=== PATIENT | male | born 1995 | race African-American/Black ===

== ENCOUNTER 2022-01-13 10:17 | Outpatient (CLI) | payer SELFPAY | END 2022-01-13 10:18 | disposition EMS.NT | LOC: EMS 10:17 | DX: R07.89 Other chest pain (principal) ==

== ENCOUNTER 2022-09-19 09:20 | Emergency (ER) | payer MEDICAID ==
[2022-09-19 10:22] LABS: RAPID STREP SCREEN Negative (Negative)
[2022-09-19] MEDS ORDERED: ALBUTEROL 1 PUFF INH STA (11:33)
--- NOTE | 2022-09-19 11:36 | ED Physician Documentation ---
History of Present Illness - Stated complaint Stated Complaint: SORE THROAT/CONGESTION - Chief complaint Chief Complaint: Heent - Additonal information Additional information: 27-year-old male presents emergency department requesting evaluation for sore throat cough and congestion. Reports symptoms started on August 21. He has completed a 10-day course of an antibiotic prescribed by an outpatient provider but states symptoms are not better. He has chronic congestion and a productive cough. He now has a sore throat. Reports that when he was eating last night he felt pain in his throat when swallowing. No recent fevers. No nausea or vomiting. He has not attempted anything [id number] for symptoms other than the prescribed antibiotics. He is a daily tobacco user as well as cannabis user. Patient's affect in triage is angry. He had been upset at the emergency department wait time. Reported that staff was racist because other patients were brought back before him based on acuity. I called was called to come to the emergency department but he was de-escalated. These events occurred prior to my initial evaluation with the patient Review of Systems Constitutional: denies: Fever Ears: reports: Reviewed and negative Nose: reports: Rhinorrhea / runny nose, Congestion Throat: reports: Sore throat Cardiac: reports: Reviewed and negative Respiratory: reports: Cough, Wheezing. denies: Dyspnea GI: reports: Reviewed and negative : reports: Reviewed and negative PD PAST MEDICAL HISTORY - Present Medications Home Medications: Ambulatory Orders Medication Instructions Recorded Confirmed Albuterol Sulf [Ventolin Hfa 1 - 2 puffs INH Q4HR PRN #1 each 09/19/22 Inhaler] - Allergies Allergies/Adverse Reactions: Allergies Allergy/AdvReac Type Severity Reaction Status Date / Time No Known Drug Allergies Allergy Verified 09/19/22 09:29 PD ED PE NORMAL - General General: Alert and oriented X 3, No acute distress, Well developed/nourished - HEENT HEENT: Atraumatic, Ears normal, Moist mucous membranes, Pharynx benign (Mildly erythematous posterior oropharynx without tonsillar exudate. Patient does have chronic tonsillar hypertrophy and crowding. Uvula is midline. No soft palate asymmetry or swelling. No dysphonia. Normal swallow) - Neck Neck: Supple, no meningeal sign, No adenopathy - Cardiac Cardiac: RRR, No murmur - Respiratory Respiratory: No respiratory distress. No: Clear bilaterally (Diffuse faint scattered expiratory wheeze. No respiratory distress. Room air saturations 99%) - Abdomen Abdomen: Normal bowel sounds, Soft, Non tender, Non distended - Back Back: No CVA TTP - Derm Derm: Normal color, Warm and dry - Extremities Extremities: No deformity - Neuro Neuro: Alert and oriented X 3 Eye Opening: Spontaneous Motor: Obeys Commands Verbal: Oriented GCS Score: 15 Results - Vitals Vitals: Vital Signs - 24 hr 09/19/22 09/19/22 09/19/22 09:27 11:51 12:00 Temperature 36.8 C Heart Rate 85 85 Respiratory 16 16 16 Rate Blood Pressure 140/93 H O2 Saturation 98 09/19/22 12:28 Temperature 36.4 C L Heart Rate 78 Respiratory 16 Rate Blood Pressure 150/89 H O2 Saturation 98 Oxygen O2 Source Room air - Labs Labs: Laboratory Tests 09/19/22 10:04 Group A Strep Rapid Negative - Rads (name of study) CXR Relevant Findings:: Final report received (No acute cardiopulmonary abnormalities or focal airspace disease) PD Medical Decision Making - ED course Complexity details: reviewed results, re-evaluated patient, considered differential, d/w patient ED course: 27-year-old male reports to the emergency department for evaluation of cough nasal congestion and a sore throat. Symptoms began August 21. He has completed 10-day course of antibiotics but does not feel better. He has had no fevers, night sweats or weight loss. He does endorse cannabis use as well as smoking/vaping daily. Takes no prescribed medications. With the exception of the antibiotic that he is prescribed by walk-in clinic he has not taken any [id number] medications for symptoms. Initially affect was angry. We had a strange patient encounter as he felt that he was roomed behind other patients due to his race. I am however on pulmonary auscultation the patient was noted to have some faint diffuse expiratory wheeze. Room air saturations were 99%. I did ask respiratory therapy to come to the bedside and they gave him an albuterol treatment with a spacer which he felt improved the symptoms. On reevaluation the patient has no further wheeze. Given the duration of symptoms I did obtain a chest x-ray which showed no acute cardiopulmonary process. At the time of this disposition the patient's respiratory PCR is pending. I suspect a viral URI or seasonal allergies causing chronic postnasal drip contributing to his cough. I do not feel he would benefit from a new course of antibiotics given the lack of fever and unremarkable chest x-ray findings. I am making the recommendation for the patient to use Sudafed [id number] to help with congestion. I would also like him to do saline nasal rinses followed by Flonase. He may benefit from the use of an allergy medication. He is directed to follow-up the respiratory PCR results on the computer. Albuterol prescribed for cough. As I was leaving the clinical encounter the patient reported to me that he is concerned his symptoms could be prodromal to HIV as he recently had a sexual encounter about 6 weeks ago and he has heard by hand of mouth that the individual he had unprotected sex with might be HIV positive. As such I have ordered the HIV reference testing. I notified the patient that these results would not be available for at least a week. We would follow-up with him if the testing was positive he may also access the test results online. He is also encouraged to follow closely with a primary care provider. Departure - Departure Disposition: 01 Home, Self Care Clinical Impression: Chronic nasal congestion Cough Qualifiers: Cough type: subacute Qualified Code(s): R05.2 - Subacute cough Condition: Stable Record reviewed to determine appropriate education?: Yes Prescriptions: Albuterol Sulf [Ventolin Hfa Inhaler] 1 - 2 puffs INH Q4HR PRN #1 each PRN Reason: Shortness Of Air/Wheezing Comments: You came to the emergency department today because for about 4 weeks you have had some chronic congestion in your nose as well as a cough. You have completed a course of antibiotics but not gotten better. Rate today is normal. He does not show any findings of pneumonia. When we initially listen to your lungs you were wheezy. We did give you some albuterol which seems to improve the symptoms. Because of this I am sending a prescription for albuterol to the [facility] in [place]. Chronic nasal congestion can cause postnasal drip which can make you have a cough.. I do encourage you to use a Courtney pot or saline nasal rinses each day in the shower. Once out of the shower use Flonase nasal spray. This has a mild steroid in it which can help significantly with congestion. Also using an smzn-ufz-zhmbxyq antihistamine such as Claritin or Zyrtec can be helpful. Benadryl at night can also help. A few doses of Sudafed may also dry up your sinuses. As you discussed with this provider you were concerned about the possibility of HIV infection. We are sending screening labs to check for HIV. We will not have these results for at least a week. We will notify you if the results are positive however you can access any of these results online by going through the [facility] portal. I encourage you to schedule an appointment with a primary care provider as soon as possible to discuss your overall health concerns. I also encourage you to attempt to stop smoking, vaping and using daily cannabis as it is undoubtedly contributing to your chronic congestion.
--- NOTE | 2022-09-19 12:27 | XRAY Report ---
PROCEDURE: Chest 1 View X-Ray INDICATIONS: cough X 1 month TECHNIQUE: One view of the chest was acquired. COMPARISON: None. FINDINGS: Surgical changes and devices: None. Lungs and pleura: No pleural effusions or pneumothorax. Lungs are clear. Mediastinum: Mediastinal contours appear normal. Heart size is normal. Bones and chest wall: No suspicious bony lesions. Overlying soft tissues appear unremarkable. IMPRESSION: Chest without acute cardiopulmonary abnormalities or focal airspace disease. Reviewed by: Ino Roland MD on 09/19/2022 12:26 PM PDT Approved by: Ino Roland MD on 09/19/2022 12:26 PM PDT Station ID: [id number]
[2022-09-19 12:30] VITALS: BP 150/89
[2022-09-19 12:45] LABS: CORONAVIRUS 229E-RESP PCR NOT DETECTED; CORONAVIRUS HKU1-RESP PCR NOT DETECTED; CORONAVIRUS NL63-RESP PCR NOT DETECTED; CORONAVIRUS OC43-RESP PCR NOT DETECTED; HUMAN METAPNEUMOVIRUS NOT DETECTED; RHINOVIRUS/ENTEROVIRUS NOT DETECTED; SARS-CoV-2 -RESP PCR PANEL NOT DETECTED
[2022-09-19 12:46] LABS: B. PARAPERTUSSIS- RESP PCR PAN NOT DETECTED; B. PERTUSSIS- RESP PCR PANEL NOT DETECTED; C. PNEUMONIAE- RESP PCR PANEL NOT DETECTED; INFLUENZA A- RESP PCR PANEL NOT DETECTED; INFLUENZA B - RESP PCR PANEL NOT DETECTED; M. PNEUMONIAE- RESP PCR PANEL NOT DETECTED; PARAINFLUENZA VIRUS 1 NOT DETECTED; PARAINFLUENZA VIRUS 2 NOT DETECTED; PARAINFLUENZA VIRUS 3 NOT DETECTED; PARAINFLUENZA VIRUS 4 NOT DETECTED; RSV- RESP PCR PANEL NOT DETECTED
[2022-09-21 12:09] LABS: HIV 1 AB Reactive (Non Reactive); HIV 2 AB Non Reactive (Non Reactive); HIV AB INTERPRETATION HIV-1 Positive (.); HIV SCREEN 4TH GENERATION Preliminary Reactive (Non Reactive)
== END 2022-09-19 13:11 | disposition home or self-care (01) ==
LOC: ED 09:20
DX: R09.81 Nasal congestion (principal); R05.2 Subacute cough; R06.2 Wheezing; F17.200 Nicotine dependence, unspecified, uncomplicated; Z11.4 Encounter for screening for human immunodeficiency virus [HIV]; Z20.822 Contact with and (suspected) exposure to COVID-19
CPT/HCPCS: 87070; 87389; 87430; 87633; 94640; 94664; 99284

== ENCOUNTER 2023-08-16 11:02 | Emergency (ER) | payer MEDICAID ==
[2023-08-16 11:15] VITALS: BP 146/83; O2SAT 98
[2023-08-16 12:09] LABS: B. PARAPERTUSSIS- RESP PCR PAN NOT DETECTED; B. PERTUSSIS- RESP PCR PANEL NOT DETECTED; C. PNEUMONIAE- RESP PCR PANEL NOT DETECTED; CORONAVIRUS 229E-RESP PCR NOT DETECTED; CORONAVIRUS HKU1-RESP PCR NOT DETECTED; CORONAVIRUS NL63-RESP PCR NOT DETECTED; CORONAVIRUS OC43-RESP PCR NOT DETECTED; HUMAN METAPNEUMOVIRUS NOT DETECTED; INFLUENZA A- RESP PCR PANEL NOT DETECTED; INFLUENZA B - RESP PCR PANEL NOT DETECTED; M. PNEUMONIAE- RESP PCR PANEL NOT DETECTED; PARAINFLUENZA VIRUS 1 NOT DETECTED; PARAINFLUENZA VIRUS 2 NOT DETECTED; PARAINFLUENZA VIRUS 3 NOT DETECTED; PARAINFLUENZA VIRUS 4 NOT DETECTED; RHINOVIRUS/ENTEROVIRUS NOT DETECTED; RSV- RESP PCR PANEL NOT DETECTED; SARS-CoV-2 -RESP PCR PANEL NOT DETECTED
--- NOTE | 2023-08-16 12:55 | ED Physician Documentation ---
PD HPI URI - Stated complaint Stated Complaint: COUGH/DISORIENTED - Chief complaint Chief Complaint: Resp - History obtained from History obtained from: Patient - History of Present Illness Timing - onset: How many days ago (6-7) Timing duration: Days Timing details: Gradual onset, Still present (has had persistent cough and dysspnea, poor sleep due to it, without improving as yet.) Associated symptoms: Chills, Nasal congestion, Productive cough, Dyspnea. No: NVD, Bilateral edema Contributing factors: COPD / asthma. No: Sick contact, Immunocompromised Similar symptoms before: Has not had sx before Review of Systems Constitutional: reports: Chills, Myalgias. denies: Fever Nose: reports: Congestion. denies: Rhinorrhea / runny nose Throat: denies: Sore throat Cardiac: reports: Chest pain / pressure. denies: Palpitations Respiratory: reports: Dyspnea, Cough, Wheezing PD PAST MEDICAL HISTORY - Past Medical History Past Medical History: Yes Cardiovascular: None Respiratory: Asthma Other Past Medical History: HIV - Past Surgical History Past Surgical History: No - Present Medications Home Medications: Ambulatory Orders Medication Instructions Recorded Confirmed Albuterol Sulf [Ventolin Hfa 1 - 2 puffs INH Q4HR PRN #1 each 09/19/22 Inhaler] Albuterol Sulf [Ventolin Hfa 2 - 3 puffs INH QID #1 each 08/16/23 Inhaler] Amox/Clav 875/125 [Augmentin] 1 each PO Q12H #10 tablet 08/16/23 Benzonatate [Tessalon] 100 mg PO TID PRN #20 cap 08/16/23 dexAMETHasone [Decadron] 4 mg PO DAILY #5 tablet 08/16/23 - Allergies Allergies/Adverse Reactions: Allergies Allergy/AdvReac Type Severity Reaction Status Date / Time No Known Drug Allergies Allergy Verified 08/16/23 11:11 - Social History Does the pt smoke?: Yes Smoking Status: Current every day smoker Does the pt drink ETOH?: No Does the pt have substance abuse?: No - Immunizations Immunizations are current?: Yes - POLST Patient has POLST: No PD ED PE NORMAL - Vitals Vital signs reviewed: Yes - General General: Alert and oriented X 3, No acute distress, Well developed/nourished - HEENT HEENT: Ears normal, Pharynx benign - Neck Neck: Supple, no meningeal sign, No adenopathy - Cardiac Cardiac: RRR, No murmur - Respiratory Respiratory: Clear bilaterally - Abdomen Abdomen: Soft - Extremities Extremities: No edema, No calf tenderness / cord - Neuro Neuro: No motor deficit, No sensory deficit Results - Vitals Vitals: Oxygen O2 Source Room air - Labs Labs: Laboratory Tests 08/16/23 11:15 Nasal Adenovirus (PCR) NOT DETECTED Nasal B. parapertussis DNA (PCR) NOT DETECTED Nasal Coronavir 229E PCR NOT DETECTED Nasal Coronavir HKU1 PCR NOT DETECTED Nasal Coronavir NL63 PCR NOT DETECTED Nasal Coronavir OC43 PCR NOT DETECTED Nasal Enterovir/Rhinovir PCR NOT DETECTED Nasal Influenza B PCR NOT DETECTED Nasal Influenza A PCR NOT DETECTED Nasal Parainfluen 1 PCR NOT DETECTED Nasal Parainfluen 2 PCR NOT DETECTED Nasal Parainfluen 3 PCR NOT DETECTED Nasal Parainfluen 4 PCR NOT DETECTED Nasal RSV (PCR) NOT DETECTED Nasal B.pertussis DNA PCR NOT DETECTED Nasal C.pneumoniae (PCR) NOT DETECTED Rangel Human Metapneumo PCR NOT DETECTED Nasal M.pneumoniae (PCR) NOT DETECTED Nasal SARS-CoV-2 (PCR) NOT DETECTED PD Medical Decision Making - ED course Complexity details: considered differential (cough with sputum production and feeling weak and lightheaded this morning. ), d/w patient Departure - Departure Disposition: 01 Home, Self Care Clinical Impression: Dyspnea, Lower respiratory infection (e.g., bronchitis, pneumonia, pneumonitis, pulmonitis) Condition: Stable Record reviewed to determine appropriate education?: Yes Instructions: ED Upper Resp Infec Abx Tx Prescriptions: Amox/Clav 875/125 [Augmentin] 1 each PO Q12H #10 tablet dexAMETHasone [Decadron] 4 mg PO DAILY #5 tablet Benzonatate [Tessalon] 100 mg PO TID PRN #20 cap PRN Reason: Cough Albuterol Sulf [Ventolin Hfa Inhaler] 2 - 3 puffs INH QID #1 each Comments: Use your albuterol inhaler 2 to 3 puffs 4 times daily for the next several days to week. Use Augmentin antibiotic for presumed bacterial bronchitis. As it is exacerbating your asthma, we can also use or expect some benefit from some anti- inflammatories. I also wrote for benzonatate to help with cough. Stay well-hydrated. Off work today and tomorrow. Recheck if not improving well over the next several days. Even after you are im proving with less sputum production and general fatigue and illness, you are likely to have a residual cough even a week or 2 after that. That would be expected but more just have an irritating cough. Forms: PCP List, Activity restrictions Discharge Date/Time: 08/16/23 13:56
[2023-08-16] MEDS: AMOX/CLAV 875 MG/125 MG TABLET PO STA (13:39)
[2023-08-16] MEDS: dexAMETHasone 4 MG TABLET PO STA (13:39)
[2023-08-16] MEDS: BENZONATATE 100 MG CAPSULE PO STA (13:39)
[2023-08-16] MEDS: ALBUTEROL 1 PUFF INH STA (13:43)
--- NOTE | 2023-08-16 13:46 | XRAY Report ---
PROCEDURE: Chest 2V INDICATIONS: cough TECHNIQUE: 2 views of the chest were acquired. COMPARISON: 09/19/2022. FINDINGS: Surgical changes and devices: None. Lungs and pleura: No pleural effusions or pneumothorax. Lungs are clear. Mediastinum: Mediastinal contours appear normal. Heart size is normal. Bones and chest wall: No suspicious bony lesions. Overlying soft tissues appear unremarkable. IMPRESSION: No acute cardiopulmonary process. Reviewed by: Henry Paniagua MD on 08/16/2023 1:45 PM PDT Approved by: Henry Paniagua MD on 08/16/2023 1:45 PM PDT Station ID: [id number]
== END 2023-08-16 13:56 | disposition home or self-care (01) ==
LOC: ED 11:02
DX: J06.9 Acute upper respiratory infection, unspecified (principal); F17.200 Nicotine dependence, unspecified, uncomplicated; Z11.52 Encounter for screening for COVID-19
CPT/HCPCS: 71046; 87633; 94640; 99284; A9270; J8540

== ENCOUNTER 2023-12-01 08:25 | Outpatient (CLI) | payer MEDICAID | END 2023-12-01 23:59 | disposition critical access hospital (66) | LOC: EMS 08:25 | DX: R10.84 Generalized abdominal pain (principal); R10.817 Generalized abdominal tenderness; R20.2 Paresthesia of skin; R20.0 Anesthesia of skin; R53.1 Weakness; F10.90 Alcohol use, unspecified, uncomplicated | CPT/HCPCS: A0425; A0429; A0999 ==

== ENCOUNTER 2023-12-01 08:46 | Emergency (ER) | payer MEDICAID ==
--- NOTE | 2023-12-01 08:55 | ED Physician Documentation ---
PD HPI NVD - Stated complaint Stated Complaint: ETOH - Chief complaint Chief Complaint: General - History obtained from History obtained from: Patient, EMS - History of Present Illness Timing - onset: How many days ago (3) Timing - duration: Days (3) Timing - details: Abrupt onset, Still present Associated symptoms: Abdominal pain (upper), Loss of appetite. No: Fever, Hematemesis Contributing factors: Alcohol use (he has history of regular alcohol use mostly every day, but has been more heavily the past several days, then developed abd pain and vomiting, with some diarrhea. Feeling ill, lightheaded, and concerned about withdrawal.). No: Sick contact Improved by: No: Vomiting Worsened by: Eating Similar symptoms before: Has not had sx before Review of Systems Constitutional: reports: Chills, Myalgias, Fatigue. denies: Fever Nose: denies: Rhinorrhea / runny nose, Congestion Throat: reports: Sore throat Cardiac: denies: Chest pain / pressure Respiratory: reports: Dyspnea. denies: Cough Neurologic: reports: Generalized weakness PD PAST MEDICAL HISTORY - Past Medical History Cardiovascular: None Respiratory: Asthma Endocrine/Autoimmune: None GI: None : None Psych: Depression Musculoskeletal: None Derm: None Other Past Medical History: HIV - Past Surgical History Past Surgical History: No - Present Medications Home Medications: Ambulatory Orders Medication Instructions Recorded Confirmed Albuterol Sulf [Ventolin Hfa 2 - 3 puffs INH QID #1 each 08/16/23 12/01/23 Inhaler] Bictegrav/Emtricit/Tenofov Ala 1 tab PO DAILY 12/01/23 12/01/23 [Biktarvy 50-200-25 mg Tablet] Famotidine [Pepcid] 20 mg PO BID #20 tablet 12/01/23 LORazepam [Ativan] 1 mg PO Q6H PRN #25 tablet 12/01/23 Ondansetron Odt [Zofran] 4 mg TL Q6H PRN #10 tablet 12/01/23 PHENobarbitaL [Phenobarbital] 30 mg PO BID 6 Days #9 tablet 12/01/23 - Allergies Allergies/Adverse Reactions: Allergies Allergy/AdvReac Type Severity Reaction Status Date / Time No Known Drug Allergies Allergy Verified 12/01/23 08:52 - Social History Does the pt smoke?: Yes Smoking Status: Current every day smoker Does the pt drink ETOH?: No Does the pt have substance abuse?: No - Immunizations Immunizations are current?: Yes - POLST Patient has POLST: No PD ED PE NORMAL - Vitals Vital signs reviewed: Yes - General General: Alert and oriented X 3, Well developed/nourished - HEENT HEENT: Pharynx benign. No: Moist mucous membranes - Neck Neck: Supple, no meningeal sign, No adenopathy - Cardiac Cardiac: RRR, No murmur - Respiratory Respiratory: Clear bilaterally - Abdomen Abdomen: Normal bowel sounds, Soft, Non distended, No organomegaly, Other (tender epigastric and RUQ area without guarding nor percussion tenderness. ) - Derm Derm: Normal color, Warm and dry - Neuro Neuro: Alert and oriented X 3, No motor deficit, Normal speech Results - Vitals Vitals: Vital Signs - 24 hr 12/01/23 12/01/23 12/01/23 08:47 10:52 12:00 Temperature 37.3 C Heart Rate 93 98 97 Respiratory 22 18 18 Rate Blood Pressure 160/95 H 125/67 152/97 H O2 Saturation 97 100 100 12/01/23 13:01 Temperature Heart Rate 78 Respiratory 18 Rate Blood Pressure 128/82 H O2 Saturation 98 Oxygen O2 Source Room air - Labs Labs: Laboratory Tests 12/01/23 12/01/23 09:12 09:12 WBC 5.1 RBC 5.16 Hgb 14.2 Hct 43.8 MCV 84.9 MCH 27.5 MCHC 32.4 RDW 16.2 H Plt Count 295 MPV 8.6 Neut # (Auto) 2.1 Lymph # (Auto) 2.4 Elk # (Auto) 0.4 Eos # (Auto) 0.1 Baso # (Auto) 0.1 Absolute Nucleated RBC 0.00 Nucleated RBC % 0.0 Sodium 140 Potassium 3.2 L Chloride 103 Carbon Dioxide 26 Anion Gap 11.0 BUN 8 Creatinine 0.8 Estimated GFR (MDRD) 140 Glucose 183 H Calcium 9.2 Phosphorus 1.4 L Magnesium 1.9 Total Bilirubin 0.4 AST 34 ALT 32 Alkaline Phosphatase 59 Total Protein 7.4 Albumin 4.3 Globulin 3.1 Albumin/Globulin Ratio 1.4 Lipase 14 TSH 0.82 Ethyl Alcohol 136.9 PD Medical Decision Making - ED course Complexity details: reviewed results (LFTs and lipase are normal. Presume epigastric pain and vomiting are gastritis, though some diarrhea ith it, so viral GE also consider. K and Phos low but should replete with regular oral intake. ), re-evaluated patient (he is feeling much better with IV fluids and antiemetic meds. Given med to start on withdrawal symptoms that were just starting to develop. He does not want detox inpatient. He wants meds for home and outpt counseling/treatment. ), considered differential, d/w patient, other (I often use phenobarb and ativan for alcohol withdrawal. Eopcrates references interaction stating not to use pehnobarb and some others more than 1-2 weeks in conjunction with his antiviral meds. ) Departure - Departure Disposition: Home, Self Care Clinical Impression: Upper abdominal pain, Gastritis, Alcohol use disorder Condition: Stable Record reviewed to determine appropriate education?: Yes Instructions: ED Gastritis, ED Alcohol Abuse Follow-Up: Alexander Mcfadden MD [Primary Care Provider] - Prescriptions: LORazepam [Ativan] 1 mg PO Q6H PRN #25 tablet PRN Reason: Alcohol Withdrawal Famotidine [Pepcid] 20 mg PO BID #20 tablet PHENobarbitaL [Phenobarbital] 30 mg PO BID 6 Days #9 tablet Ondansetron Odt [Zofran] 4 mg TL Q6H PRN #10 tablet PRN Reason: Nausea / Vomiting Comments: Your blood tests are good without any signs of inflammation of the liver or pancreas. Your pain in the upper abdomen and stomach likely relates to irritation either from a viral type illness or from the regular alcohol use or combination of both. A viral type illness could also account for some of the loose stools/diarrhea you are having. That portion of it should be self-limited over a few days. The irritation of the stomach from alcohol use or such (gastritis or ulcer) can be a longer and healing. Obviously avoid alcohol. I wrote prescription for medications to help with withdrawal symptoms. I would also suggest a acid reducing medicine such as famotidine twice daily for the next week or 2. You can use antacids such as Maalox or Mylanta as well. Ondansetron/Zofran if needed for nausea. I wrote prescription for medications to help you not have withdrawal symptoms from your alcohol. There is longer acting as well as short acting medications. 1 is phenobarbital twice daily for 3 days and then once daily for 3 days. The other would be lorazepam/Ativan every 4-6 hours if needed with tapering use over several days to week. I looked up potential interactions with your current medications and it was suggested not to use any of their withdrawal type medicines longer than 1 to 2 weeks. I would anticipate only a 6-day course or less for them so should be good with that. I sent your prescriptions to your preferred pharmacy. Also follow-up with one of the local clinics or such to help with substance use disorder. Forms: PCP List, Activity restrictions Discharge Date/Time: 12/01/23 13:01
[2023-12-01] MEDS: FAMOTIDINE 20 MG/2 ML VIAL IVP STA (09:14)
[2023-12-01] MEDS: KETOROLAC 15 MG/ML VIAL IVP STA (09:15)
[2023-12-01 09:20] LABS: BASOPHILS # (AUTO) 0.1 10^3/uL (0.0-0.1); BASOPHILS % (AUTO) 1.4 %; EOSINOPHILS # (AUTO) 0.1 10^3/uL (0.0-0.7); EOSINOPHILS % (AUTO) 1.4 %; HCT - HEMATOCRIT 43.8 % (42.0-52.0); HGB - HEMOGLOBIN 14.2 g/dL (14.0-18.0); LYMPHOCYTES # (AUTO) 2.4 10^3/uL (1.5-3.5); LYMPHOCYTES % (AUTO) 46.7 %; MEAN CORPUSCULAR HEMOGLOBIN 27.5 pg (27.0-31.0); MEAN CORPUSCULAR HGB CONC 32.4 g/dL (32.0-36.0); MEAN CORPUSCULAR VOLUME 84.9 fL (80.0-94.0); MEAN PLATELET VOLUME 8.6 fL (7.4-11.4); MONOCYTES # (AUTO) 0.4 10^3/uL (0.0-1.0); MONOCYTES % (AUTO) 8.7 %; NEUTROPHILS # (AUTO) 2.1 10^3/uL (1.5-6.6); NEUTROPHILS % (AUTO) 41.6 %; PLT - PLATELET COUNT 295 10^3/uL (130-450); RED BLOOD COUNT 5.16 10^6/uL (4.70-6.10); RED CELL DISTRIBUTION WIDTH 16.2 % (12.0-15.0); WHITE BLOOD COUNT 5.1 x10^3/uL (4.8-10.8)
[2023-12-01] MEDS: THIAMINE INJ 100 MG, FOLIC ACID INJ 1 MG in SODIUM CHLORIDE 0.9% 1,000 ML IV STA (09:32)
[2023-12-01 09:35] LABS: ALBUMIN 4.3 g/dL (3.2-5.5); ALBUMIN/GLOBULIN RATIO 1.4 (1.0-2.2); BILIRUBIN,TOTAL 0.4 mg/dL (0.2-1.0); CALCIUM 9.2 mg/dL (8.5-10.3); CREATININE 0.8 mg/dL (0.6-1.3); ETOH - ETHANOL 136.9 mg/dL; MAGNESIUM 1.9 mg/dL (1.7-2.3); PHOSPHORUS 1.4 mg/dL (2.5-5.0); POTASSIUM 3.2 mmol/L (3.5-4.5); TOTAL PROTEIN 7.4 g/dL (6.4-8.9)
[2023-12-01 09:47] LABS: THYROID STIMULATING HORMONE 0.82 uIU/mL (0.34-5.60)
[2023-12-01] MEDS: MAG HYDROX/AL HYDROX/SIMETH 30 ML UDC PO STA (12:33)
[2023-12-01] MEDS: PHENobarbitaL 32.4 MG TABLET PO STA (12:33)
[2023-12-01 13:03] VITALS: BP 128/82; O2SAT 98
== END 2023-12-01 13:01 | disposition home or self-care (01) ==
LOC: EDUNIT# → EDBD → ED 08:46
DX: K29.70 Gastritis, unspecified, without bleeding (principal); F17.200 Nicotine dependence, unspecified, uncomplicated
CPT/HCPCS: 36415; 80053; 82077; 83690; 83735; 84100; 84443; 85025; 96365; 96375; 99284; A9270; J3411

== ENCOUNTER 2023-12-04 05:42 | Outpatient (CLI) | payer MEDICAID | END 2023-12-04 22:29 | disposition EMS.NT | LOC: EMS 05:42 | DX: R00.0 Tachycardia, unspecified (principal); F10.90 Alcohol use, unspecified, uncomplicated ==

== ENCOUNTER 2023-12-19 23:04 | Outpatient (CLI) | payer MEDICAID | END 2023-12-19 23:05 | disposition EMS.NT | LOC: EMS 23:04 | DX: Z03.89 Encounter for observation for other suspected diseases and conditions ruled out (principal) ==

== ENCOUNTER 2024-01-03 01:22 | Outpatient (CLI) | payer MEDICAID | END 2024-01-03 01:23 | disposition EMS.NT | LOC: EMS 01:22 | DX: F10.129 Alcohol abuse with intoxication, unspecified (principal) ==

== ENCOUNTER 2024-01-31 16:39 | Emergency (ER) | payer MEDICAID ==
[2024-01-31 16:57] LABS: BASOPHILS # (AUTO) 0.1 10^3/uL (0.0-0.1); BASOPHILS % (AUTO) 0.9 %; EOSINOPHILS # (AUTO) 0.2 10^3/uL (0.0-0.7); EOSINOPHILS % (AUTO) 1.6 %; HCT - HEMATOCRIT 41.6 % (42.0-52.0); HGB - HEMOGLOBIN 13.3 g/dL (14.0-18.0); LYMPHOCYTES % (AUTO) 38.3 %; MEAN CORPUSCULAR HEMOGLOBIN 27.8 pg (27.0-31.0); MEAN CORPUSCULAR VOLUME 86.8 fL (80.0-94.0); MEAN PLATELET VOLUME 8.6 fL (7.4-11.4); MONOCYTES # (AUTO) 0.8 10^3/uL (0.0-1.0); MONOCYTES % (AUTO) 7.5 %; NEUTROPHILS # (AUTO) 5.4 10^3/uL (1.5-6.6); NEUTROPHILS % (AUTO) 51.3 %; PLT - PLATELET COUNT 349 10^3/uL (130-450); RED BLOOD COUNT 4.79 10^6/uL (4.70-6.10); RED CELL DISTRIBUTION WIDTH 15.3 % (12.0-15.0); WHITE BLOOD COUNT 10.5 x10^3/uL (4.8-10.8)
[2024-01-31 17:05] VITALS: O2SAT 98
--- NOTE | 2024-01-31 17:14 | ED Physician Documentation ---
History of Present Illness - Stated complaint Stated Complaint: - Chief complaint Chief Complaint: Abd Pain - History obtained from History obtained from: Patient - History of Present Illness Timing: Prior to arrival - Additonal information Additional information: Patient is a 29-year-old male presenting to the emergency department with past medical history of HIV history of alcohol abuse presents to the emergency department with 1 episode of rectal bleeding. Patient notes this morning while he was at work he had 1 bowel movement of blood in his stool. He notes it was blood mixed with stool no large amount of blood or clots. He notes no black stool. He denies any abdominal pain associated with it. He denies any other episodes afterwards. He notes he was straining to have a bowel movement earlier today. No blood in his urine no fevers or chills. Patient is not on any blood thinners. He denies any nausea or vomiting or hematemesis. Patient does report drinking yesterday but none this week. He denies any history of hemorrhoids or ever having this happen before. He denies any associated symptoms of dizziness lightheadedness or shortness of breath. PD PAST MEDICAL HISTORY - Past Medical History Past Medical History: Yes Cardiovascular: None Respiratory: Asthma Endocrine/Autoimmune: None GI: None : None Psych: Depression Musculoskeletal: None Derm: None - Past Surgical History Past Surgical History: No - Present Medications Home Medications: Ambulatory Orders Medication Instructions Recorded Confirmed Albuterol Sulf [Ventolin Hfa 2 - 3 puffs INH QID #1 each 08/16/23 12/01/23 Inhaler] Bictegrav/Emtricit/Tenofov Ala 1 tab PO DAILY 12/01/23 12/01/23 [Biktarvy 50-200-25 mg Tablet] Famotidine [Pepcid] 20 mg PO BID #20 tablet 12/01/23 LORazepam [Ativan] 1 mg PO Q6H PRN #25 tablet 12/01/23 Ondansetron Odt [Zofran] 4 mg TL Q6H PRN #10 tablet 12/01/23 PHENobarbitaL [Phenobarbital] 30 mg PO BID 6 Days #9 tablet 12/01/23 - Allergies Allergies/Adverse Reactions: Allergies Allergy/AdvReac Type Severity Reaction Status Date / Time No Known Drug Allergies Allergy Verified 01/31/24 16:43 - Social History Does the pt smoke?: Yes Smoking Status: Current every day smoker Does the pt drink ETOH?: No Does the pt have substance abuse?: No - Immunizations Immunizations are current?: Yes - POLST Patient has POLST: No PD ED PE NORMAL - Vitals Vital signs reviewed: Yes - General General: Alert and oriented X 3 - HEENT HEENT: Atraumatic - Neck Neck: Supple, no meningeal sign - Cardiac Cardiac: RRR, No murmur, No gallop, No rub - Respiratory Respiratory: No respiratory distress, Clear bilaterally - Abdomen Abdomen: Normal bowel sounds, Soft, Non tender, Non distended - Rectal Rectal: Other (Rectal exam shows no fissures or hemorrhoids on examination guaiac does show stool no signs of palpable internal hemorrhoids on exam.) - Extremities Extremities: No deformity - Neuro Eye Opening: Spontaneous Motor: Obeys Commands Verbal: Oriented GCS Score: 15 - Psych Psych: Normal mood, Normal affect Results - Vitals Vitals: Vital Signs - 24 hr 01/31/24 01/31/24 16:43 17:57 Temperature 36.5 C Heart Rate 76 71 Respiratory 16 16 Rate Blood Pressure 160/100 H 136/96 H O2 Saturation 98 98 Oxygen O2 Source Room air - Labs Labs: Microbiology 01/31/24 18:03 Occult Blood - Final Stool Laboratory Tests 01/31/24 01/31/24 01/31/24 16:53 16:53 17:31 WBC 10.5 RBC 4.79 Hgb 13.3 L Hct 41.6 L MCV 86.8 MCH 27.8 MCHC 32.0 RDW 15.3 H Plt Count 349 MPV 8.6 Neut # (Auto) 5.4 Lymph # (Auto) 4.0 H [place] # (Auto) 0.8 Eos # (Auto) 0.2 Baso # (Auto) 0.1 Absolute Nucleated RBC 0.00 Nucleated RBC % 0.0 PT INR Sodium 138 Potassium 4.1 Chloride 103 Carbon Dioxide 28 Anion Gap 7.0 BUN 14 Creatinine 0.8 Estimated GFR (MDRD) 139 Glucose 87 Calcium 9.8 Total Bilirubin 0.4 AST 17 ALT 21 Alkaline Phosphatase 64 Total Protein 7.6 Albumin 4.3 Globulin 3.3 Albumin/Globulin Ratio 1.3 Lipase 14 Urine Color YELLOW Urine Clarity CLEAR Urine pH 6.0 Ur Specific [place] 1.025 Urine Protein NEGATIVE Urine Glucose (UA) NEGATIVE Urine Ketones NEGATIVE Urine Occult Blood NEGATIVE Urine Nitrite NEGATIVE Urine Bilirubin NEGATIVE Urine Urobilinogen 0.2 (NORMAL) Ur Leukocyte Esterase NEGATIVE Ur Microscopic Review NOT INDICATED Urine Culture Comments NOT INDICATED 01/31/24 18:12 WBC RBC Hgb Hct MCV MCH MCHC RDW Plt Count MPV Neut # (Auto) Lymph # (Auto) [place] # (Auto) Eos # (Auto) Baso # (Auto) Absolute Nucleated RBC Nucleated RBC % PT 11.6 INR 1.0 Sodium Potassium Chloride Carbon Dioxide Anion Gap BUN Creatinine Estimated GFR (MDRD) Glucose Calcium Total Bilirubin AST ALT Alkaline Phosphatase Total Protein Albumin Globulin Albumin/Globulin Ratio Lipase Urine Color Urine Clarity Urine pH Ur Specific [place] Urine Protein Urine Glucose (UA) Urine Ketones Urine Occult Blood Urine Nitrite Urine Bilirubin Urine Urobilinogen Ur Leukocyte Esterase Ur Microscopic Review Urine Culture Comments PD Medical Decision Making - ED course Complexity details: reviewed old records, reviewed results ED course: Patient is a 29-year-old male presenting to the emergency department with symptoms of bowel movement with bright red blood in it that occurred earlier today. Patient denies any abdominal pain with that no dizziness or lightheadedness associated with symptoms. Labs obtained here in the emergency department showed mild anemia at 13.3 but no significant drop from 14 back in November. Patient has no history of GI bleed. He does have history of alcohol abuse. But is not on any blood thinners and no history of variceal bleeding. Patient denies any recent hematemesis hematemesis no dizziness lightheadedness or shortness of breath. INR is within normal range. Labs otherwise stable here guaiac test does show Occult test is negative. Patient updated on reassuring findings since blood pressure remained stable he is nontachycardic asymptomatic otherwise and feels okay to go home. Discussed with patient he will follow-up with his PCP he understands he may require further imaging if he continues to have blood in his stool if he develops any dizziness lightheadedness shortness of breath he should return to the emergency department as this could be concerning for GI bleed. Patient understands and is agreeable with this plan. Departure - Departure Disposition: 01 Home, Self Care Clinical Impression: Blood in the stool, Gastritis Condition: Good Comments: You were seen here in the emergency department and had 1 episode of blood in stool. Your workup here in the emergency department was reassuring I did not find any hemorrhoids no fissures to explain the episode however your test came back negative and your blood levels are stable. This symptom could be secondary to an internal hemorrhoid not palpated on examination or could be secondary to an anal fissure from straining earlier to have a bowel movement. However your workup here and findings were stable and I feel safe sending you home if you develop any persistent bloody stools dizziness lightheadedness or shortness of breath he should return to the emergency department. If you develop any hematemesis which is blood in your vomit or abdominal pain return to the emergency department. Please follow-up with your PCP in out patient setting Forms: PCP List
[2024-01-31 17:15] LABS: ALBUMIN 4.3 g/dL (3.2-5.5); ALBUMIN/GLOBULIN RATIO 1.3 (1.0-2.2); BILIRUBIN,TOTAL 0.4 mg/dL (0.2-1.0); CALCIUM 9.8 mg/dL (8.5-10.3); CREATININE 0.8 mg/dL (0.6-1.3); POTASSIUM 4.1 mmol/L (3.5-4.5); TOTAL PROTEIN 7.6 g/dL (6.4-8.9)
[2024-01-31 17:51] LABS: BILIRUBIN,URINE NEGATIVE (NEGATIVE); GLUCOSE, URINE (UA) NEGATIVE (NEGATIVE); KETONES,URINE (UA) NEGATIVE (NEGATIVE); LEUKOCYTE ESTERASE, URINE NEGATIVE (NEGATIVE); NITRITE,URINE NEGATIVE (NEGATIVE); OCCULT BLOOD,URINE NEGATIVE (NEGATIVE); PROTEIN,URINE NEGATIVE (NEGATIVE); UROBILINOGEN,URINE 0.2 (NORMAL) E.U./dL (NORMAL)
[2024-01-31 17:52] LABS: CLARITY,URINE CLEAR (CLEAR)
[2024-01-31 18:08] VITALS: BP 136/96
[2024-01-31 18:26] LABS: PT - PROTHROMBIN TIME 11.6 secs (9.9-12.6)
== END 2024-01-31 19:07 | disposition home or self-care (01) ==
LOC: ED 16:39
DX: K29.71 Gastritis, unspecified, with bleeding (principal); D64.9 Anemia, unspecified
CPT/HCPCS: 36415; 80053; 81001; 81003; 82272; 83690; 85025; 85610; 87086; 99283

== ENCOUNTER 2024-08-29 07:44 | Observation (INO) ==
--- NOTE | 2024-08-29 07:40 | ED Physician Documentation ---
History of Present Illness Stated complaint Stated Complaint: SI/OD Chief complaint Chief Complaint: MHE Additonal information Additional information: 29-year-old with history of HIV and mental health disorder presents after intentional ingestion. Patient reports he has been depressed because he has a bad relationship with his father. He currently lives in the area by himself although his father is also nearby. He drank about 1/5 of vodka earlier today. Around 2 this morning he took around 10 pills of a combination of naltrexone and bupropion. He presents this morning due to being afraid that he could have harmed himself. He is guarded and agitated with staff and does not provide much other history. He states he is compliant with his Biktarvy for HIV. He states he does not drink alcohol every day and only drinks a few times a week. Meds/Allgy Home Medications Ambulatory Orders Medication Instructions Recorded Confirmed albuterol sulfate 90 mcg/actuation 2 - 3 puff inhalation QID #1 ea 08/16/23 04/25/24 aerosol inhaler (Ventolin HFA) bictegravir 50 mg-emtricitabine 1 tab PO DAILY 12/01/23 08/29/24 200 mg-tenofovir alafenam 25 mg tablet (Biktarvy) albuterol sulfate 90 mcg/actuation 1 inh inhalation QID #1 ea 03/06/24 breath activated powder inhaler albuterol sulfate 90 mcg/actuation 1 puff inhalation QID PRN 03/07/24 aerosol inhaler (Ventolin HFA) shortness of breath or wheezing #6.7 grams Allergies Allergies Allergy/AdvReac Type Severity Reaction Status Date / Time bee venom protein (honey bee) Allergy Severe Anaphylaxis Verified 08/29/24 07:56 estephanie Allergy Unknown Mouth Verified 08/29/24 07:56 Swelling PFSH Active Problems All Active Problems (Updated 08/29/24 @ 19:08 by Dorian Khan MD) Seizure (Acute) Intentional overdose (Acute) Pneumonia (Acute) Acute viral syndrome (Acute) Medical History Medical History (Updated 08/29/24 @ 19:08 by Dorian Khan MD) Asthma HIV (human immunodeficiency virus infection) Surgical History Surgical History (Updated 03/06/24 @ 14:27 by Sung Payne, RNC, BSN) No pertinent past surgical history Social History Social History (Updated 03/05/24 @ 14:29 by Tami Armenta LPN) Smoking Status: Light tobacco smoker Do you vape?: Yes Relationship: Do you feel safe in your home environment?: Yes Suffered physical, verbal, emotional, or financial abuse?: No History of Abuse: No Exam Exam Vital Signs: Vital Signs x48h Pulse Resp BP Pulse Ox 08/29/24 18:34 125 H 22 134/77 H 97 08/29/24 16:40 103 H 128/68 98 08/29/24 12:50 94 138/99 H 99 Yelling at staff and uncooperative with examination. Pupils are normal size and reactive bilaterally. No tremor of the hands. No diaphoresis or piloerection. Lungs clear to auscultation bilaterally. S1-S2 audible. Abdomen soft and nontender. Results Vitals Vitals: Vital Signs - 24 hr 08/29/24 07:56 08/29/24 12:50 08/29/24 16:40 Temperature 36.1 C L Temperature Source Temporal Artery Scan Pulse Rate 90 94 103 H Respiratory Rate 18 Blood Pressure 139/91 H 138/99 H 128/68 O2 Saturation 97 99 98 O2 Source Room air Room air Room air Pain Intensity 0 7 0 08/29/24 18:34 Temperature Temperature Source Pulse Rate 125 H Respiratory Rate 22 Blood Pressure 134/77 H O2 Saturation 97 O2 Source Room air Pain Intensity 0 Oxygen O2 Source Room air EKG (time done) 8:51: EKG releavant findings:: EKG personally interpreted by author of this note. Relevant findings are: Rate: Rate (enter#) (73) Rhythm: NSR [place]: Normal Intervals: Normal [place] QRS: QRS normal Ischemia: Normal ST segments; No ST elevation c/w ischemia, ST elevation c/w repol, ST depression or Non specific changes 18:40: EKG releavant findings:: EKG personally interpreted by author of this note. Relevant findings are: Rate: Rate (enter#) (117) Rhythm: NSR [place]: Normal Intervals: Normal [place] QRS: QRS normal Ischemia: Normal ST segments Labs Labs: Laboratory Tests 08/29/24 08/29/24 08/29/24 07:57 11:01 17:19 WBC 13.5 H RBC 5.44 Hgb 15.1 Hct 46.2 MCV 84.9 MCH 27.8 MCHC 32.7 RDW 14.6 Plt Count 403 MPV 8.8 Neut # (Auto) Not Reportable Lymph # (Auto) Not Reportable [place] # (Auto) Not Reportable Eos # (Auto) Not Reportable Baso # (Auto) Not Reportable Absolute Nucleated RBC Not Reportable Total Counted 100 Band Neuts % (Manual) 0 Reactive Lymphs % (Man) 5 Abnorm Lymph % (Manual) 0 Nucleated RBC % Not Reportable Neutrophils # (Manual) 7.0 H Lymphocytes # (Manual) 5.0 H Monocytes # (Manual) 0.9 Eosinophils # (Manual) 0.4 Basophils # (Manual) 0.1 Differential Comment MANUAL DIFFERENTIAL Manual Slide Review Indicated Platelet Estimate NORMAL (130-450,000) Platelet Morphology NORMAL APPEARANCE RBC Morph Micro Appear NORMAL APPEARANCE Sodium 139 Potassium 4.0 Chloride 105 Carbon Dioxide 23 Anion Gap 11.0 BUN 10 Creatinine 1.1 Estimated GFR (MDRD) 96 Glucose 111 H Calcium 9.8 Magnesium 2.5 H Total Bilirubin 0.4 AST 28 ALT 33 Alkaline Phosphatase 72 Total Protein 8.6 Albumin 5.0 Globulin 3.6 Albumin/Globulin Ratio 1.4 Salicylates < 1.5 Urine Opiates Screen NEGATIVE Ur Buprenorphine Scrn NEGATIVE Ur Oxycodone Screen POSITIVE H Urine Methadone Screen NEGATIVE Acetaminophen 0.1 Ur Barbiturates Screen NEGATIVE Ur Tricyclics Screen NEGATIVE Ur Phencyclidine Scrn NEGATIVE Ur Amphetamine Screen NEGATIVE U Methamphetamines Scrn NEGATIVE U Benzodiazepines Scrn NEGATIVE Urine Cocaine Screen NEGATIVE U Cannabinoids Screen POSITIVE H Ur Drug Screen Comment CUTOFF CONC BELOW: Ethyl Alcohol 263.0 67.9 PD Medical Decision Making ED course ED course: Patient reports intentional overdose on bupropion and naltrexone along with alcohol consumption this evening. Initial labs and ECG without concerning findings for toxicology syndrome. He was observed for 9 hours and then ethanol level returned below the limit of 0.08. He was then consulted for psych evaluation and had a seizure in the interim. The seizure broke on its own. I then gave 10 mg IV diazepam for possible alcohol withdrawal. Upon obtaining further history, he states he does not drink alcohol every day. I am concerned that bupropion could be contributing to this lower seizure threshold. Repeat ECG did show some mild QTc prolongation. QRS remained less than 110 ms. Patient will be admitted to the hospital for observation for seizure. Poison control was contacted at admission team request. They recommended ECGs every 4 hours. They recommended adding on magnesium. They recommend magnesium greater than 2 and potassium greater than 4. At this time, I recommend voluntary admission for mental health. Should he decline voluntary admission, I would recommend pursuing DCR evaluation given that he intentionally tried to harm himself last night although he was i ntoxicated. Discharge Plan Discharge Patient Disposition: ED Place in Observation Clinical Impression: Intentional overdose, Seizure Prescriptions: No Action albuterol sulfate [Ventolin HFA] 200 PUFFS/18 GM HFA aerosol inhaler 2 - 3 puff inhalation QID Qty: 1 0RF Biktarvy 1 EACH tablet 1 tab PO DAILY albuterol sulfate 90 mcg/actuation aerosol powdr breath activated 1 inh inhalation QID Qty: 1 0RF albuterol sulfate [Ventolin HFA] 90 mcg/actuation HFA aerosol inhaler 1 puff inhalation QID PRN (Reason: shortness of breath or wheezing) Qty: 6.7 0RF Print Language: Icelandic Stand Alone Forms: PCP List
[2024-08-29 08:08] LABS: BASOPHILS % (AUTO) 0.6 %; EOSINOPHILS % (AUTO) 0.6 %; HCT - HEMATOCRIT 46.2 % (42.0-52.0); HGB - HEMOGLOBIN 15.1 g/dL (14.0-18.0); LYMPHOCYTES % (AUTO) 39.6 %; MEAN CORPUSCULAR HEMOGLOBIN 27.8 pg (27.0-31.0); MEAN CORPUSCULAR HGB CONC 32.7 g/dL (32.0-36.0); MEAN CORPUSCULAR VOLUME 84.9 fL (80.0-94.0); MEAN PLATELET VOLUME 8.8 fL (7.4-11.4); MONOCYTES % (AUTO) 6.2 %; NEUTROPHILS % (AUTO) 52.6 %; PLT - PLATELET COUNT 403 10^3/uL (130-450); RED BLOOD COUNT 5.44 10^6/uL (4.70-6.10); RED CELL DISTRIBUTION WIDTH 14.6 % (12.0-15.0); WHITE BLOOD COUNT 13.5 x10^3/uL (4.8-10.8)
[2024-08-29 08:09] LABS: SLIDE REVIEW? Indicated
[2024-08-29 08:10] LABS: ABNORMAL LYMPHS % (MANUAL) 0 %; BAND NEUTROPHILS % (MANUAL) 0 %
--- OUTSIDE RECORDS SUMMARY | 2024-08-29 08:11 | EXTERNAL MEDICAL SUMMARY RPT | Continuity of Care Document ---
Author Organization [facility] Address [address] [place] [id number] Phone Problems date description facility 2024-07-20 08:25 Cough, unspecified [facility] 2024-07-20 08:26 Cough, unspecified [facility] 2024-07-20 08:30 Cough, unspecified [facility] Social History date description facility
[2024-08-29] MEDS: OLANZapine 10 MG VIAL IM STA (08:18)
[2024-08-29 08:22] LABS: ACETAMINOPHEN 0.1 ug/mL; ALBUMIN/GLOBULIN RATIO 1.4 (1.0-2.2); ALKALINE PHOSPHATASE 72 IU/L (42-121); ALT ALANINE AMINOTRANSFERASE 33 IU/L (10-60); AST ASPARTATE AMINOTRANSFERASE 28 IU/L (10-42); BILIRUBIN,TOTAL 0.4 mg/dL (0.2-1.0); BUN - BLOOD UREA NITROGEN 10 mg/dL (6-20); CALCIUM 9.8 mg/dL (8.5-10.3); CARBON DIOXIDE - CO2 23 mmol/L (21-32); CHLORIDE 105 mmol/L (101-111); CREATININE 1.1 mg/dL (0.6-1.3); GFR - MDRD 96 (>89); GLUCOSE 111 mg/dL (74-104); SODIUM 139 mmol/L (135-145); TOTAL PROTEIN 8.6 g/dL (6.4-8.9)
[2024-08-29 08:23] LABS: SALICYLATE < 1.5 mg/dL
[2024-08-29 08:46] LABS: BASOPHILS # (MANUAL) 0.1 10^3/uL (0-0.1); BASOPHILS % (MANUAL) 1 %; EOSINOPHILS # (MANUAL) 0.4 10^3/uL (0-0.7); LYMPHOCYTES % (MANUAL) 32 %; MONOCYTES # (MANUAL) 0.9 10^3/uL (0.0-1.0); PLATELET ESTIMATE, MANUAL NORMAL (130-450,000) (NORMAL); PLATELET MORPHOLOGY NORMAL APPEARANCE (NORMAL); RBC MORPHOLOGY (MULTIPLE) NORMAL APPEARANCE (NORMAL); REACTIVE LYMPHS % (MANUAL) 5 %
[2024-08-29 08:47] LABS: DIFFERENTIAL COMMENT MANUAL DIFFERENTIAL
[2024-08-29 11:15] LABS: AMPHETAMINE SCREEN,URINE NEGATIVE (NEGATIVE); BARBITURATE SCREEN,UR NEGATIVE (NEGATIVE); BENZODIAZEPINES SCREEN, URINE NEGATIVE (NEGATIVE); BUPRENORPHINE SCREEN, URINE NEGATIVE (NEGATIVE); COCAINE SCREEN URINE NEGATIVE (NEGATIVE); METHADONE SCREEN, URINE NEGATIVE (NEGATIVE); METHAMPHETAMINES SCREEN, URINE NEGATIVE (NEGATIVE); OPIATE SCREEN, URINE NEGATIVE (NEGATIVE); OXYCODONE SCREEN, URINE POSITIVE (NEGATIVE); THC CANNABINOID SCREEN, URINE POSITIVE (NEGATIVE); TRICYCLIC ANTIDEPRESSANT,URINE NEGATIVE (NEGATIVE)
[2024-08-29] MEDS: ONDANSETRON ODT 4 MG TABLET TL STA (12:52)
[2024-08-29] MEDS ORDERED: LORazepam 2 MG/ML VIAL ONE (18:27)
[2024-08-29] MEDS: diazePAM INJ 5 MG/ML SYRINGE IVP STA (18:44)
--- NOTE | 2024-08-29 19:12 | HISTORY & PHYSICAL EXAMINATION ---
Chief Complaint Chief Complaint Chief Complaint: Intentional overdose History of Present Illness Admitted From Admitted From:: Home History Obtained From History obtained from: Patient interview History of Present Illness HPI Comment/Other: 29-year-old male PMH significant for HIV compliant with his Biktarvy as well as asthma. At about 2 AM today, he took about 10 pills that were combination of naltrexone and bupropion. He has been having depression because of his poor relationship with his father. He also drank about 1/5 of vodka earlier today. He came into the ER this morning because he was afraid that he harmed himself. He says he does not always drink alcohol every day, only drinks few times a week. In the ER, he was held in mental health observation and he experienced a 10- second seizure. This seizure self aborted, and the ER gave him 10 mg of diazepam for further seizure suppression. It is believed that the bupropion is contributing to his lower seizure threshold. His EKG shows some QTc prolongation. Poison control was contacted, who recommended serial EKGs every 4 and lab parameters. He is being admitted for new seizure observation due to drug ingestion Meds/Allgy Home Medications Ambulatory Orders Medication Instructions Recorded Confirmed albuterol sulfate 90 mcg/actuation 2 - 3 puff inhalation QID #1 ea 08/16/23 04/25/24 aerosol inhaler (Ventolin HFA) bictegravir 50 mg-emtricitabine 1 tab PO DAILY 12/01/23 08/29/24 200 mg-tenofovir alafenam 25 mg tablet (Biktarvy) albuterol sulfate 90 mcg/actuation 1 inh inhalation QID #1 ea 03/06/24 breath activated powder inhaler albuterol sulfate 90 mcg/actuation 1 puff inhalation QID PRN 03/07/24 aerosol inhaler (Ventolin HFA) shortness of breath or wheezing #6.7 grams Allergies Allergies Allergy/AdvReac Type Severity Reaction Status Date / Time bee venom protein (honey bee) Allergy Severe Anaphylaxis Verified 08/29/24 07:56 estephanie Allergy Unknown Mouth Verified 08/29/24 07:56 Swelling PFSH Active Problems All Active Problems (Updated 08/29/24 @ 19:08 by Dorian Khan MD) Seizure (Acute) Intentional overdose (Acute) Pneumonia (Acute) Acute viral syndrome (Acute) Medical History Medical History (Updated 08/29/24 @ 19:08 by Dorian Khan MD) Asthma HIV (human immunodeficiency virus infection) Surgical History Surgical History (Updated 03/06/24 @ 14:27 by Sung Payne RNC, BSN) No pertinent past surgical history Social History Social History (Updated 03/05/24 @ 14:29 by Tami Armenta LPN) Smoking Status: Light tobacco smoker Do you vape?: Yes Relationship: Do you feel safe in your home environment?: Yes Suffered physical, verbal, emotional, or financial abuse?: No History of Abuse: No POLST Patient has POLST: No Review of Systems ROS limited as patient is Somnolent after receiving dose of benzodiazepine. He denies fever, chills, chest pain, shortness of breath, or any other symptoms. Status of ROS: 10 or more systems reviewed and unremarkable except as noted in history and below Exam Exam Vital Signs: Vital Signs x48h Pulse Resp BP Pulse Ox 08/29/24 20:46 119 H 19 138/77 H 96 08/29/24 19:48 116 H 23 135/91 H 98 08/29/24 18:34 125 H 22 134/77 H 97 08/29/24 16:40 103 H 128/68 98 Constitutional normal general appearance and no apparent distress HENMT normocephalic and head/scalp atraumatic Eyes PERRL Neck/C-Spine visual inspection normal Lymph no lymphadenopathy noted Chest inspection of chest normal Respiratory breath sounds equal bilaterally, normal respiratory effort and clear to auscultation bilaterally Cardiovascular heart rate abnormal (tachycardic) and regular rhythm noted Gastrointestinal abdomen normal to inspection and abdomen soft to palpation Extremities normal to inspection Neurology GCS 15 Psychiatry oriented x3 Skin skin color normal Conclusion/Plan Problem List (1) Seizure: Plan: Likely secondary to bupropion ingestion Poison control recommendations as below I am giving him 500 mg IV Keppra and starting him on twice daily p.o. Keppra He will discharged on Keppra and follow-up with his PCP or with neurology regarding ongoing use as he has now had 2 seizures Seizure precautions (2) Intentional overdose: Plan: Sitter at bedside He is here voluntarily until he is not He will be evaluated by social work in the morning regarding his suicidality (3) HIV (human immunodeficiency virus infection): Plan: Takes Biktarvy at home, reports compliance with this Plan Placed in observation Full code His mother is his surrogate decision-maker Lab Results Lab results reviewed: Yes 08/29/24 07:57 08/29/24 07:57 Core Measures Anticipated LOS I expect patient to be DC'd or transferred within 96 hours.: Yes DVT/VTE - Prophylaxis VTE/DVT Prophylaxis med ordered at admit?: Yes
--- NOTE | 2024-08-29 19:46 | ED Physician Documentation ---
ED Addendum Addendum Addendum: Note clinical staff educator alerted me patient feels like he may have another seizure. 1mg IV ativan ordered. Discharge Plan Discharge Patient Disposition: ED Place in Observation Clinical Impression: Intentional overdose, Seizure Prescriptions: No Action albuterol sulfate [Ventolin HFA] 200 PUFFS/18 GM HFA aerosol inhaler 2 - 3 puff inhalation QID Qty: 1 0RF Biktarvy 1 EACH tablet 1 tab PO DAILY albuterol sulfate 90 mcg/actuation aerosol powdr breath activated 1 inh inhalation QID Qty: 1 0RF albuterol sulfate [Ventolin HFA] 90 mcg/actuation HFA aerosol inhaler 1 puff inhalation QID PRN (Reason: shortness of breath or wheezing) Qty: 6.7 0RF Print Language: Malawian Stand Alone Forms: PCP List
[2024-08-29] MEDS: LORazepam 2 MG/ML VIAL IVP STA (19:54)
[2024-08-29] MEDS ORDERED: levETIRAcetam 500 MG/5 ML VIAL ONE (20:55)
[2024-08-29] MEDS: levETIRAcetam INJ 500 MG in SODIUM CHLORIDE 0.9% 100ML 100 ML IV STA (20:56)
[2024-08-29] MEDS ORDERED: ONDANSETRON 4 MG/2 ML VIAL IVP PRN (21:43)
[2024-08-29] MEDS ORDERED: ONDANSETRON ODT 4 MG TABLET TL PRN (21:43)
[2024-08-29] MEDS ORDERED: SODIUM CHLORIDE FLUSH 0.9% 10 ML SYRINGE IVP PRN (21:43)
[2024-08-29] MEDS ORDERED: LORazepam 2 MG/ML VIAL IVP PRN (22:07)
[2024-08-29] MEDS: LACTATED RINGERS 1,000 ML IV SCH (22:11)
[2024-08-30] MEDS: SODIUM CHLORIDE FLUSH 0.9% 10 ML SYRINGE IVP SCH (00:14)
[2024-08-30 05:45] LABS: BASOPHILS # (AUTO) 0.1 10^3/uL (0.0-0.1); BASOPHILS % (AUTO) 0.5 %; EOSINOPHILS % (AUTO) 0.3 %; HCT - HEMATOCRIT 39.3 % (42.0-52.0); LYMPHOCYTES # (AUTO) 3.2 10^3/uL (1.5-3.5); LYMPHOCYTES % (AUTO) 26.4 %; MEAN CORPUSCULAR HGB CONC 33.1 g/dL (32.0-36.0); MEAN CORPUSCULAR VOLUME 84.7 fL (80.0-94.0); MEAN PLATELET VOLUME 8.6 fL (7.4-11.4); MONOCYTES % (AUTO) 8.4 %; NEUTROPHILS # (AUTO) 7.8 10^3/uL (1.5-6.6); NEUTROPHILS % (AUTO) 63.8 %; PLT - PLATELET COUNT 345 10^3/uL (130-450); RED BLOOD COUNT 4.64 10^6/uL (4.70-6.10); RED CELL DISTRIBUTION WIDTH 14.8 % (12.0-15.0); WHITE BLOOD COUNT 12.2 x10^3/uL (4.8-10.8)
[2024-08-30] MEDS: MAG HYDROX/AL HYDROX/SIMETH 30 ML UDC PO PRN (05:58)
[2024-08-30 06:00] LABS: MAGNESIUM 2.7 mg/dL (1.7-2.3); POTASSIUM 3.9 mmol/L (3.5-4.5)
[2024-08-30] MEDS: levETIRAcetam 500 MG/5 ML UDC PO SCH (11:29)
[2024-08-30] MEDS: POTASSIUM CHLORIDE 20 MEQ TABLET PO ONE (11:29)
[2024-08-30] MEDS: ENOXAPARIN 40 MG/0.4 ML SYRINGE SUBQ SCH (11:29)
[2024-08-30] MEDS: chlordiazePOXIDE 25 MG CAPSULE PO SCH (13:44)
[2024-08-30] MEDS: PRENATAL VITAMIN TABLET PO SCH (16:37)
[2024-08-30] MEDS: THIAMINE 100 MG TABLET PO SCH (16:42)
--- NOTE | 2024-08-30 17:26 | PROVIDER PROGRESS NOTE ---
Subjective Prog Note Date Prog Note Date: 08/30/24 Subjective Pt reports feeling: No change Current Medications Current Medications Current Medications: Current Medications Generic Name Dose Route Start Last Admin Trade Name Freq PRN Reason Stop Dose Admin Acetaminophen 650 mg 08/29/24 21:43 Acetaminophen 325 Mg Tablet PO Q4HR PRN Pain 1 to 4, or Fever Al Hydroxide/Mg Hydroxide 30 ml 08/30/24 05:46 08/30/24 05:58 Mag Hydrox/Al Hydrox/Simeth 30 Ml Udc PO 30 ml Q4HR PRN Administration INDIGESTION Chlordiazepoxide HCl 25 mg 08/30/24 12:00 08/30/24 13:44 Chlordiazepoxide 25 Mg Capsule PO Not Given Q6HR CAMMIE Enoxaparin Sodium 40 mg 08/30/24 09:00 08/30/24 11:29 Enoxaparin 40 Mg/0.4 Ml Syringe SUBQ Not Given DAILY CAMMIE Levetiracetam 500 mg 08/30/24 09:00 08/30/24 11:29 Levetiracetam 500 Mg/5 Ml Udc PO 500 mg BID CAMMIE Administration Lorazepam 4 mg 08/29/24 22:07 Lorazepam 2 Mg/Ml Vial IVP 08/30/24 22:06 ONCE PRN Seizure Lorazepam 1 mg 08/30/24 11:31 Lorazepam 1 Mg Tablet PO Q1H PRN CIWA > 8 Protocol Ondansetron HCl 4 mg 08/29/24 21:43 Ondansetron Odt 4 Mg Tablet TL Q6HR PRN Nausea / Vomiting Ondansetron HCl 4 mg 08/29/24 21:43 Ondansetron 4 Mg/2 Ml Vial IVP Q6HR PRN Nausea / Vomiting Patient Own Med ( 1 each 08/31/24 09:00 Biktarvy) PO DAILY CAMMIE Multivit/Folic Acid/Iron 1 tab 08/30/24 12:00 08/30/24 16:37 Vitamin Tablet PO 1 tab DAILY CAMMIE Administration Sodium Chloride 10 ml 08/29/24 21:43 Sodium Chloride Flush 0.9% 10 Ml Syringe IVP PRN PRN NEEDED PER PROVIDER ORDERS Sodium Chloride 10 ml 08/30/24 01:00 08/30/24 11:30 Sodium Chloride Flush 0.9% 10 Ml Syringe IVP Not Given 0100,0900,1700 CAMMIE Thiamine HCl 100 mg 08/30/24 12:00 08/30/24 16:42 Thiamine 100 Mg Tablet PO 100 mg DAILY CAMMIE Administration Objective Vital Signs/Intake & Output Reviewed Vital Signs: Yes Vital Signs: Vital Signs x48h Temp Pulse Resp BP Pulse Ox 08/30/24 16:49 36.5 C 84 20 136/78 H 98 08/30/24 11:15 36.6 C 88 20 149/114 H 96 Intake & Output: Intake & Output 08/27/24 08/28/24 08/29/24 08/30/24 23:59 23:59 23:59 23:59 Intake Total 505 / 505 1850 / 1850 Balance 505 / 505 1850 / 1850 Weight (kg) 129 kg Objective General Appearance: positive No acute distress and Alert Eyes Bilateral: positive Normal inspection and PERRL ENT: positive ENT inspection nml Neck: positive Nml inspection Respiratory: positive Chest non-tender Cardiovascular: positive Regular rate & rhythm Abdomen: positive Non-tender Skin: positive Color nml Extremities: positive Non-tender Neurologic/Psychiatric: positive Oriented x3 Lab Results 08/30/24 05:25 08/30/24 05:25 Other Labs: Lab Results x24hrs 08/30/24 08/29/24 08/29/24 Range/Units 05:25 22:20 17:19 WBC 12.2 H (4.8-10.8) x10^3/uL RBC 4.64 L (4.70-6.10) 10^6/uL Hgb 13.0 L (14.0-18.0) g/dL Hct 39.3 L (42.0-52.0) % MCV 84.7 (80.0-94.0) fL MCH 28.0 (27.0-31.0) pg MCHC 33.1 (32.0-36.0) g/dL RDW 14.8 (12.0-15.0) % Plt Count 345 (130-450) 10^3/uL MPV 8.6 (7.4-11.4) fL Neut # (Auto) 7.8 H (1.5-6.6) 10^3/uL Lymph # (Auto) 3.2 (1.5-3.5) 10^3/uL [place] # (Auto) 1.0 (0.0-1.0) 10^3/uL Eos # (Auto) 0.0 (0.0-0.7) 10^3/uL Baso # (Auto) 0.1 (0.0-0.1) 10^3/uL Absolute Nucleated RBC 0.00 x10^3/uL Nucleated RBC % 0.0 /100WBC Sodium 136 (135-145) mmol/L Potassium 3.9 (3.5-4.5) mmol/L Chloride 101 (101-111) mmol/L Carbon Dioxide 27 (21-32) mmol/L Anion Gap 8.0 (6-13) BUN 9 (6-20) mg/dL Creatinine 1.0 (0.6-1.3) mg/dL Estimated GFR (MDRD) 107 (>89) Glucose 94 (74-104) mg/dL Calcium 9.0 (8.5-10.3) mg/dL Magnesium 2.7 H 2.5 H (1.7-2.3) mg/dL Ethyl Alcohol 67.9 mg/dL SARS-CoV-2 (PCR) NOT DETECTED Assessment/Plan Problem List (1) Seizure: Impression: He has not had any new seizures since the 1 in the ER Continuing 500 mg p.o. Keppra twice daily Seizure precautions Poison control recommendations were followed with serial EKGs and lab monitoring Follow-up with PCP/neurology regarding seizures (2) Alcohol withdrawal: Impression: He reports drinking 375 mL liquor at least 5 times a week He reported having visual hallucinations last night I fear he is going into acute alcohol withdrawal I have started the CIWA protocol with as needed Ativan IV as well as scheduled Librium, multivitamin, thiamine (3) Intentional overdose: Impression: Safety checks every 15 minutes, no need for sitter at bedside He is here voluntarily until he is not He will need inpatient psych placement at discharge (4) HIV (human immunodeficiency virus infection): Impression: He may continue his home Biktarvy if he has it available
[2024-08-30] MEDS: LORazepam 1 MG TABLET PO PRN (19:25)
[2024-08-31] MEDS: ACETAMINOPHEN 325 MG TABLET PO PRN (00:05)
[2024-08-31] MEDS: LORazepam 2 MG/ML VIAL IVP PRN (02:33)
[2024-08-31 05:32] LABS: BASOPHILS # (AUTO) 0.1 10^3/uL (0.0-0.1); BASOPHILS % (AUTO) 0.8 %; EOSINOPHILS # (AUTO) 0.1 10^3/uL (0.0-0.7); EOSINOPHILS % (AUTO) 1.3 %; HCT - HEMATOCRIT 41.4 % (42.0-52.0); HGB - HEMOGLOBIN 13.4 g/dL (14.0-18.0); LYMPHOCYTES # (AUTO) 2.5 10^3/uL (1.5-3.5); LYMPHOCYTES % (AUTO) 31.1 %; MEAN CORPUSCULAR HEMOGLOBIN 27.7 pg (27.0-31.0); MEAN CORPUSCULAR HGB CONC 32.4 g/dL (32.0-36.0); MEAN CORPUSCULAR VOLUME 85.5 fL (80.0-94.0); MEAN PLATELET VOLUME 9.2 fL (7.4-11.4); MONOCYTES # (AUTO) 0.6 10^3/uL (0.0-1.0); MONOCYTES % (AUTO) 7.3 %; NEUTROPHILS # (AUTO) 4.7 10^3/uL (1.5-6.6); NEUTROPHILS % (AUTO) 59.1 %; PLT - PLATELET COUNT 341 10^3/uL (130-450); RED BLOOD COUNT 4.84 10^6/uL (4.70-6.10); RED CELL DISTRIBUTION WIDTH 14.6 % (12.0-15.0)
[2024-08-31 05:33] LABS: INR 1.1 (0.8-1.2); PT - PROTHROMBIN TIME 11.8 secs (9.9-12.6)
[2024-08-31 05:44] LABS: CALCIUM 9.5 mg/dL (8.5-10.3); POTASSIUM 3.9 mmol/L (3.5-4.5)
[2024-08-31] MEDS: BIKTARVY PO SCH (08:21)
[2024-08-31 08:56] VITALS: O2SAT 98
--- NOTE | 2024-08-31 09:27 | PHARMACY PROGRESS NOTE ---
Best Possible Medication History Admit Date and Time: 08/29/242042 Home Medications Medication Instructions Recorded Confirmed Type bictegravir 50 mg-emtricitabine 1 tab PO DAILY 12/01/23 08/29/24 History 200 mg-tenofovir alafenam 25 mg tablet (Biktarvy) albuterol sulfate 90 mcg/actuation 1 puff inhalation QID PRN 08/31/24 08/31/24 History aerosol inhaler shortness of breath or wheezing Processed by: Pharmacy Medications reviewed in ED?: No Medication History completed: Yes Patient Interview: Completed Secondary Source(s): Insurance records [facility] Statement: Per [facility] with [facility]. As the person ultimately responsible for medication therapy, providers are able to order a medication from an existing home medication list in [facility] via the "Reconcile Routine" prior to Confirmation of that medication by lab support tech. Such practice is discouraged except when the physician, in their clinical judgment, deems that a medical need exists for a medication without regard to previous use.
[2024-08-31 12:29] VITALS: BP 137/97; TEMP 98.1
--- NOTE | 2024-08-31 16:38 | Discharge Summary ---
Discharge Summary Admit Date: 08/29/24 Discharge Date: 08/31/24 Discharging Provider: Miguel Zhu NP Primary Care Provider: [facility] Code Status: Attempt Resuscitation DIAGNOSES Admission Diagnoses: Seizure Intentional overdose HIV Discharge Diagnoses with Status of Each Condition: Seizuredischarged on Keppra, but likely due to medication overdose and alcohol withdrawal Intentional overdoseagreeable to work with outpatient services HIVon Pioaramanda HPI History of Present Illness: 29-year-old male PMH significant for HIV compliant with his Biktarvy as well as asthma. At about 2 AM today, he took about 10 pills that were combination of naltrexone and bupropion. He has been having depression because of his poor relationship with his father. He also drank about 1/5 of vodka earlier today. He came into the ER this morning because he was afraid that he harmed himself. He says he does not always drink alcohol every day, only drinks few times a week. In the ER, he was held in mental health observation and he experienced a 10- second seizure. This seizure self aborted, and the ER gave him 10 mg of diazepam for further seizure suppression. It is believed that the bupropion is contributing to his lower seizure threshold. His EKG shows some QTc prolongation. Poison control was contacted, who recommended serial EKGs every 4 and lab parameters. He is being admitted for new seizure observation due to drug ingestion HOSPITAL COURSE Hospital Course: Patient was placed in observation for seizures and had no more seizures outside of the ER. He was evaluated by social work and deemed safe to be discharged with outpatient follow-up. He was loaded with Keppra and is being discharged with Keppra. He did have some alcohol withdrawal symptoms on 08/30/2024, he was started on Librium and as needed Ativan. This morning, he has not had any more hallucinations or light sensitivity. He is requesting something for what he calls anxiety. In further discussion with him, his episodes appear more like anger outbursts. I suspect he has intermittent explosive disorder. I started him on fluoxetine and recommend further outpatient management by PCP or possibly psychiatry. He did inform me that he does not plan to stop drinking, so I would not be surprised if he returns ALLERGIES Allergies Allergy/AdvReac Type Severity Reaction Status Date / Time bee venom protein (honey bee) Allergy Severe Anaphylaxis Verified 08/29/24 07:56 estephanie Allergy Unknown Mouth Verified 08/29/24 07:56 Swelling MEDICATIONS Ambulatory Orders Medication Instructions Recorded Confirmed bictegravir 50 mg-emtricitabine 1 tab PO DAILY 12/01/23 08/29/24 200 mg-tenofovir alafenam 25 mg tablet (Biktarvy) albuterol sulfate 90 mcg/actuation 1 puff inhalation QID PRN 08/31/24 08/31/24 aerosol inhaler shortness of breath or wheezing fluoxetine 20 mg capsule 20 mg PO DAILY 30 days #30 caps 08/31/24 fluoxetine 20 mg capsule (Prozac) 20 mg PO DAILY #30 caps 08/31/24 levetiracetam 500 mg tablet 500 mg PO BID #60 tabs 08/31/24 (Keppra) PHYSICAL EXAM AT DISCHARGE Vital Signs: Vital Signs x48h Temp Pulse Resp BP BP Pulse Ox 08/31/24 12:27 36.7 C 87 20 137/97 H 98 08/31/24 08:54 37.0 C 89 18 146/94 H 98 General Appearance: positive No acute distress and Alert Eyes Bilateral: positive Normal inspection ENT: positive ENT inspection nml Neck: positive Nml inspection Respiratory: positive Chest non-tender and No respiratory distress Cardiovascular: positive Regular rate & rhythm and No murmur Peripheral Pulses: positive 2+ Abdomen: positive Non-tender Back: positive Nml inspection Skin: positive Color nml Extremities: positive Non-tender Neurologic/Psychiatric: positive Oriented x3 LABS 08/31/24 05:04 08/31/24 05:04 FOLLOW UP Follow Up: With PCP, recommend at 1 month TIME SPENT Time Spent in Discharge (Minutes): 25 Discharge Plan Discharge Patient Disposition: 01 Home, Self Care Medically Cleared Date:: 08/31/24 Prescriptions: New fluoxetine 20 mg capsule 20 mg PO DAILY 30 Days Qty: 30 2RF levetiracetam [Keppra] 500 mg tablet 500 mg PO BID Qty: 60 2RF fluoxetine [Prozac] 20 mg capsule 20 mg PO DAILY Qty: 30 2RF Continued Biktarvy 1 EACH tablet 1 tab PO DAILY albuterol sulfate 90 mcg/actuation HFA aerosol inhaler 1 puff INHALATION QID PRN (Reason: shortness of breath or wheezing) Patient Comments: inhale 1 puff by mouth four times a day if needed for shortness of breath or wheezing Diet: Regular Interventions: Belongings Inventory Last Done: 08/29/24 22:31 Discharge Last Done: 08/31/24 12:45 Discharge Checklist - Nursing Last Done: 08/31/24 12:45 Health Concerns: He came into the hospital after a intentional overdose. While in the ER, you had a seizure. You were held in observation to make sure you did not have any more seizures. This is likely due to a combination of the medicines you took plus withdrawing off of alcohol. You are out of the window for dangerous effects of alcohol withdrawal and the medicines that you took before coming into the hospital should have cleared up by now. I am regardless sending you home on Keppra at a low dose. I need you to take this twice a day until directed otherwise by your PCP. As you have had a recent seizure, also ordering no driving until you are cleared by your PCP. I provided a work note that will excuse you from work until 416. We discussed your anxiety problems. The episodes that you described to me seem to border on anger outbursts. I am concerned that you may have intermittent explosive disorder. The treatment for this is largely behavioral, but is supplemented by a medication called fluoxetine. I have ordered 20 mg for you to take daily until otherwise directed by your PCP. I would strongly recommend that you follow-up with the resources provided by social work and counseling. Print Language: Bur[place]ian Patient Instructions: ED Seizure Alcohol Withdrawal Stand Alone Forms: PCP List
== END 2024-08-31 12:35 | disposition home or self-care (01) ==
LOC: MS2 07:44 → ED 07:44 → MS2 21:39
PROVIDERS: ADMIT Nurse Practitioner Acute Care; ATTEND Nurse Practitioner Acute Care
DX: F32.A Depression, unspecified; R56.9 Unspecified convulsions; T51.92XA Toxic effect of unspecified alcohol, intentional self-harm, initial encounter; T43.292A Poisoning by other antidepressants, intentional self-harm, initial encounter; F17.200 Nicotine dependence, unspecified, uncomplicated; B20 Human immunodeficiency virus [HIV] disease; F10.239 Alcohol dependence with withdrawal, unspecified; T50.7X2A Poisoning by analeptics and opioid receptor antagonists, intentional self-harm, initial encounter; J45.909 Unspecified asthma, uncomplicated